=== PATIENT | female | born 1985 | race Caucasian/White ===

== ENCOUNTER 2018-08-10 14:13 | Outpatient (CLI) | payer MEDICAID | END 2018-08-10 16:35 | disposition home or self-care (01) | LOC: OBT 14:13 → L-D 14:13 → OBT 16:35 | DX: O99.612 Diseases of the digestive system complicating pregnancy, second trimester (principal); K80.20 Calculus of gallbladder without cholecystitis without obstruction; Z3A.24 24 weeks gestation of pregnancy | CPT/HCPCS: 76705; 76815 ==

== ENCOUNTER 2018-10-20 15:02 | Outpatient (CLI) | payer MEDICAID ==
[2018-10-20 19:29] LABS: ADD MAN DIFF? NO
[2018-10-20 19:31] LABS: BASOPHIL # 0.1 10^3/ul (0.0-0.1); BASOPHILS % 0.6 % (0.0-2.0); EOSINOPHILS # 0.2 10^3/ul (0.0-0.5); EOSINOPHILS % 2.4 % (0.0-7.0); HEMATOCRIT 34.9 % (37.0-47.0); HEMOGLOBIN 11.4 g/dl (12.0-16.0); LYMPHOCYTES # 1.9 10^3/ul (0.8-2.9); LYMPHOCYTES % 21.2 % (15.0-51.0); MEAN CORPUSCULAR HEMOGLOBIN 27.9 pg (29.0-33.0); MEAN CORPUSCULAR HGB CONC 32.7 g/dl (32.0-37.0); MEAN CORPUSCULAR VOLUME 85.5 fl (82.0-101.0); MEAN PLATELET VOLUME 9.5 fl (7.4-10.4); MONOCYTE # 0.7 10^3/ul (0.3-0.9); NEUTROPHILS % 67.1 % (39.0-77.0); PLATELET COUNT 310 10^3/UL (140-415); RED BLOOD COUNT 4.08 10^6/ul (4.20-5.40); RED CELL DISTRIBUTION WIDTH 13.1 % (11.5-14.5)
[2018-10-20 19:31] LABS: WHITE BLOOD COUNT 8.9 10^3/ul (4.8-10.8)
[2018-10-20 19:51] LABS: INR 0.97
[2018-10-20 19:52] LABS: PARTIAL THROMBOPLASTIN TIME 29.3 Sec (23.0-35.0)
[2018-10-20 19:56] LABS: URIC ACID 3.7 mg/dl (3.1-7.9)
[2018-10-20 19:56] LABS: ALANINE AMINOTRANSFERASE 45 IU/L (13-69); ALBUMIN 3.4 g/dl (3.3-4.9); ALBUMIN/GLOBULIN RATIO 0.97; ALKALINE PHOSPHATASE 233 IU/L (42-121); ANION GAP 7 (5-13); ASPARTATE AMINO TRANSFERASE 38 IU/L (15-46); BILIRUBIN,INDIRECT 0.3 mg/dl (0-1.1); BILIRUBIN,TOTAL 0.3 mg/dl (0.2-1.3); BLOOD UREA NITROGEN 8 mg/dl (7-20); CALCIUM 8.9 mg/dl (8.4-10.2); CARBON DIOXIDE 21 mmol/L (21-31); CHLORIDE 107 mmol/L (97-110); Estimated GFR > 60 mL/min (>60); GLUCOSE 77 mg/dl (70-220); POTASSIUM 3.9 mmol/L (3.5-5.1); SODIUM 135 mmol/L (135-144); TOTAL PROTEIN 6.9 g/dl (6.1-8.1)
[2018-10-24 10:21] LABS: CHENODEOXYCHOLIC ACID 8.2 umol/L (< OR = 3.1); CHOLIC ACID 28.4 umol/L (< OR = 1.8); DEOXYCHOLIC ACID 2.7 umol/L (< OR = 2.4); TOTAL BILE ACIDS 39.3 umol/L (< OR = 6.8)
== END 2018-10-20 20:28 | disposition home or self-care (01) ==
LOC: OBT 15:02 → L-D 15:02 → OBT 20:28
DX: O26.893 Other specified pregnancy related conditions, third trimester (principal); Z3A.34 34 weeks gestation of pregnancy; L29.9 Pruritus, unspecified
CPT/HCPCS: 76818; 80053; 83789; 84560; 85025; 85384; 85610; 85730

== ENCOUNTER 2018-11-07 05:55 | Inpatient (IN) | payer MEDICAID ==
[2018-11-07] MEDS ORDERED: CEFAZOLIN 2 GM/50 ML (PMX) 50 ML IVPB (06:00)
[2018-11-07] MEDS ORDERED: MISOPROSTOL 200 MCG TAB PR ×2 (06:00→12:00)
[2018-11-07] MEDS ORDERED: OXYTOCIN 30 UNITS/LR 500 ML IV ×2 (06:00→12:00)
[2018-11-07] MEDS ORDERED: CARBOPROST 250 MCG INJ IM ×2 (06:00→12:00)
[2018-11-07] MEDS: LACTATED RINGER'S 1,000 ML IV ×4 (07:04→16:30)
[2018-11-07] MEDS ORDERED: EPHEDrine 25 MG/5 ML SYG (07:55)
[2018-11-07] MEDS ORDERED: morphine SULFATE/PF (10 MG/10 ML) INJ (07:55)
[2018-11-07] MEDS ORDERED: METOCLOPRAMIDE 10 MG INJ (07:55)
[2018-11-07] MEDS ORDERED: ONDANSETRON 4 MG INJ (08:12)
[2018-11-07] MEDS ORDERED: MIDAZOLAM 1 MG/ML 2 ML INJ ×3 (08:24→08:38)
[2018-11-07] MEDS ORDERED: ONDANSETRON 4 MG INJ IV (09:00)
[2018-11-07] MEDS ORDERED: ZOLPIDEM 5 MG TAB PO (09:00)
[2018-11-07] MEDS ORDERED: NALBUPHINE HCL (10 MG/1 ML) INJ IV (09:00)
[2018-11-07] MEDS ORDERED: NALOXONE (0.4 MG/ML) INJ IV (09:00)
[2018-11-07] MEDS ORDERED: DIPHENHYDRAMINE 50 MG INJ IV (09:00)
[2018-11-07] MEDS ORDERED: LORAZEPAM 2 MG INJ IV (09:00)
[2018-11-07] MEDS ORDERED: HYDROmorphONE 0.5 MG/0.5 ML SYG IV ×2 (09:00)
[2018-11-07] MEDS ORDERED: MEPERIDINE 25 MG INJ IV (09:00)
[2018-11-07] MEDS ORDERED: MIDAZOLAM 1 MG/ML 2 ML INJ IV (09:00)
[2018-11-07] MEDS: OXYTOCIN 30 UNITS/LR 500 ML IV ×2 (09:19→16:35)
[2018-11-07] MEDS: METHYLERGONOVINE 0.2 MG INJ IM (10:35)
[2018-11-07] MEDS: KETOROLAC 30 MG INJ IV (11:33)
[2018-11-07] MEDS ORDERED: LANOLIN HPA 1 PKT TOP (12:00)
[2018-11-07] MEDS ORDERED: METHYLERGONOVINE 0.2 MG INJ IM (12:00)
[2018-11-07] MEDS ORDERED: NACL 0.9% 3 ML SYG IV (12:00)
[2018-11-07] MEDS: DIPHENHYDRAMINE 50 MG INJ IV ×2 (12:07→18:25)
[2018-11-07] MEDS: IBUPROFEN 800 MG TAB PO ×2 (14:00→22:00)
[2018-11-08] MEDS: KETOROLAC 30 MG INJ IV ×2 (01:39→08:11)
[2018-11-08] MEDS: DIPHENHYDRAMINE 50 MG INJ IV ×2 (01:42→08:12)
[2018-11-08] MEDS: LACTATED RINGER'S 1,000 ML IV ×3 (04:02→18:30)
[2018-11-08] MEDS: IBUPROFEN 800 MG TAB PO ×4 (05:42→20:39)
[2018-11-09] MEDS: LACTATED RINGER'S 1,000 ML IV ×2 (02:30→10:30)
[2018-11-09] MEDS: IBUPROFEN 800 MG TAB PO ×2 (04:47→14:02)
[2018-11-09] MEDS: HYDROCODONE/APAP (5/325) TAB PO (12:10)
[2018-11-09] MEDS: NA PHOSPHATE/BIPHOS 133 ML ENEMA PR (14:47)
[2018-11-10] MEDS ORDERED: DIPHTH/TET/ACEL PERTUSS (ADULT) 0.5 ML VIAL IM* (09:00)
[2018-11-10] MEDS ORDERED: MEASLES,MUMPS,RUBELLA VACCINE INJ SC* (09:00)
== END 2018-11-09 17:50 | disposition home or self-care (01) | DRG 785 ==
LOC: L-D 05:55 → PP1 12:03
PROC: 10D00Z1 Extraction of Products of Conception, Low, Open Approach (ICD-10-PCS; principal; 2018-11-07 07:30)
PROC: 0UT70ZZ Resection of Bilateral Fallopian Tubes, Open Approach (ICD-10-PCS; 2018-11-07 07:30)
PROC: 10907ZC Drainage of Amniotic Fluid, Therapeutic from Products of Conception, Via Natural or Artificial Opening (ICD-10-PCS; 2018-11-07 07:30)
DX: O34.211 Maternal care for low transverse scar from previous cesarean delivery (principal); K81.9 Cholecystitis, unspecified; O99.62 Diseases of the digestive system complicating childbirth; Z37.0 Single live birth; Z3A.37 37 weeks gestation of pregnancy
CPT/HCPCS: 80307; 85025; 85610; 85730; 86592; 86850; 86900; 86901; 87340; 88302; 88307; 99464